=== PATIENT | male | born 1990 | race Caucasian/White ===

== ENCOUNTER 2019-10-01 21:48 | Emergency (ER) | payer OTHER ==
[~2019-10-01] VITALS: Ht 175.3 cm; Wt 98.6 kg
[2019-10-01] MEDS ORDERED: NORCO 325 MG-51 TAB PO (22:11)
[2019-10-01 22:34] VITALS: BP 125/72; PULSE 90; TEMP 98
== END 2019-10-01 22:34 | disposition home or self-care (01) ==
LOC: COL.ER 21:48
DX: T20.29XA Burn of second degree of multiple sites of head, face, and neck, initial encounter (principal); T22.20XA Burn of second degree of shoulder and upper limb, except wrist and hand, unspecified site, initial encounter; T31.0 Burns involving less than 10% of body surface; F17.210 Nicotine dependence, cigarettes, uncomplicated; X08.8XXA Exposure to other specified smoke, fire and flames, initial encounter